=== PATIENT | female | born 2000 | race African-American/Black ===

== ENCOUNTER 2018-02-18 17:14 | Emergency (ER) | payer OTHER ==
[~2018-02-18] VITALS: Ht 165.1 cm; Wt 57.0 kg
[2018-02-18 17:27] VITALS: BP 142/92
[2018-02-20 13:10] LABS: HIV SCREEN 4G Non Reactive (Non Reactive)
[2018-02-21 04:13] LABS: CHLAMYDIA TRACHOMATIS NAA Negative (Negative); NEISSERIA GONORRHOEAE NAA Negative (Negative)
== END 2018-02-18 23:00 | disposition home or self-care (01) ==
LOC: ER 17:49
DX: Z11.3 Encounter for screening for infections with a predominantly sexual mode of transmission (principal); F12.10 Cannabis abuse, uncomplicated; Z91.018 Allergy to other foods
CPT/HCPCS: 86592; 86695; 86696; 87210; 87389; 87491; 87591; 99283